=== PATIENT | female | born 1940 | race Caucasian/White ===

== ENCOUNTER 2016-10-15 06:56 | Day surgery (SDC) | payer MEDICARE, OTHER ==
[2016-10-10 15:30] LABS: BASOPHILS 0.2 %; BASOPHILS ABSOLUTE 0.01 10/3/uL (0.0-0.16); EOSINOPHILS 1.1 %; EOSINOPHILS ABSOLUTE 0.06 10/3/uL (0.0-0.53); HEMATOCRIT 37.6 % (36.0-48.0); HEMOGLOBIN 12.8 g/dL (12.0-16.0); LYMPHOCYTES 32.5 %; LYMPHOCYTES ABSOLUTE 1.74 10/3/uL (0.67-4.30); MEAN CORPUSCULAR HEMOGLOB 32.1 pg (26.0-34.0); MEAN CORPUSCULAR VOLUME 94.2 fL (80-100); MEAN PLATELET VOLUME 9.8 fL (9.2-13.0); MONOCYTES 6.4 %; MONOCYTES ABSOLUTE 0.34 10/3/uL (0.21-1.20); NEUTROPHILS 59.8 %; PLATELET COUNT 214 10/3/uL (150-400); RED CELL COUNT 3.99 10/6/uL (4.0-5.6); WHITE BLOOD CELLS 5.4 10/3/uL (4.5-10.5)
[2016-10-10 15:31] LABS: MANUAL DIFF NO %
[2016-10-10 15:32] LABS: ASCORBIC ACID (UR NOT ORDER) 40 (NEG); BILIRUBIN, URINE NEGATIVE (NEG); KETONE, URINE NEGATIVE (NEG); LEUKOCYTE ESTERASE(NOT OR LARGE (NEG); WBC (NOT ORDERED) (RFLEX) 66 (0-5)
[2016-10-10 15:56] LABS: BUN (BLOOD UREA NITROGEN) 17 MG/DL (6-23); CALCIUM, SERUM 9.3 MG/DL (8.5-10.4); CHLORIDE, SERUM 104 MMOL/L (96-112); CO2 (CARBON DIOXIDE) 30 MMOL/L (24-34); GFR AFRICAN AMERICAN 97 ML/MIN (>=60); GFR NON AFRICAN AMERICAN 84 ML/MIN (>=60); GLUCOSE, SERUM 81 MG/DL (60-99); POTASSIUM, SERUM 4.1 MMOL/L (3.5-5.3); SODIUM, SERUM 141 MMOL/L (135-148)
--- NOTE | ~2016-10-15 | OP ---
Record Of Operation [facility] [address] [place]. [address] NAME: TYRONE RO : 38 STATUS : [facility]#: [id number] AGE: 76 ADM/REG DATE : 10/15/16 MR#: [id number] REPORT SERV DATE: 10/15/16 DICTATED BY: CARLITO WYNNE DATE: 10/15/16 REPORT STATUS : Draft TRANSCRIBED BY: SUKHI DATE: 10/15/16 DATE OF PROCEDURE: 10/15/2016 PREOPERATIVE DIAGNOSIS: Renal calculi, left. POSTOPERATIVE DIAGNOSIS: Renal calculi, left. PROCEDURE: Left extracorporeal shock wave lithotripsy. ANESTHESIA: Monitored anesthesia care (MAC). ESTIMATED BLOOD LOSS: None. COMPLICATIONS: None. IMMEDIATE POSTOP: Satisfactory. DESCRIPTION OF PROCEDURE: The patient was brought into the lithotripsy suite, placed on table of the [employer] lithotripter. Residual fragments from prior lithotripsy treatment noted in two separate clusters in the left kidney were identified. The lower most of these which appeared to be in the lower pole was aligned on mobile C-arm fluoroscopy. The patient was then coupled to the machine, given intravenous sedation by the Anesthesia Department. This group of stone was treated with 1500 shocks at 3000 power level max. The patient was then shifted to treat the more cephalad cluster which was likewise treated with 1500 shocks at 7.0 power level max. The patient tolerated the procedure well, and at the close of the procedure was awakened and sent to phase 2 recovery for post lithotripsy care. There were no complications. /SUKHI Carlito Wynne M.D. / [id number] CC: Ericka Holman MD
[~2016-10-15 06:56] MED LIST: ALEVE220 MG PO; AMIT10 PO; ASAB PO; ATIVAN2 MG PO; CALGLUCTAB PO; CRESTOR20 MG PO; DIAM250B PO; DRAMAMINE25 MG PO; FIORINALC PO; HYDROCHLOROT25 MG PO; KLOR-CON 1010 MEQ PO; MULTIPLE VIT PO; NITROQUICK0.4 MG SL; NORV5 PO; PAPAYA ENZYM OR; PCET PO; PRIM50B PO; PROBIOTIC; PROZAC40 MG PO; SARAFEM20 M1 PO; STOOL SOFTEN240 MG PO; SYN.025B PO; SYN.05 PO; TOPXL50 PO; ULTRAM50 PO; VANC125UDL PO; VITAMIN B-121000 MC1 SL; VITAMIN D1000 UNI1 PO; VITAMIN D31000 UNIT PO; [UNRECOGNIZED DRUG - REMARK]
== END 2016-10-15 11:55 | disposition home or self-care (01) ==
LOC: SDC 06:56
PROVIDERS: Urology
PROC: 0TF4XZZ Fragmentation in Left Kidney Pelvis, External Approach (ICD-10-PCS; principal; 2016-10-15 09:00)
DX: N20.0 Calculus of kidney (principal); I10 Essential (primary) hypertension; M19.90 Unspecified osteoarthritis, unspecified site; G47.33 Obstructive sleep apnea (adult) (pediatric); F41.9 Anxiety disorder, unspecified; F32.9 Major depressive disorder, single episode, unspecified; I20.9 Angina pectoris, unspecified; D64.9 Anemia, unspecified; E03.9 Hypothyroidism, unspecified; Z87.442 Personal history of urinary calculi; Z88.5 Allergy status to narcotic agent; Z88.8 Allergy status to other drugs, medicaments and biological substances; Z90.49 Acquired absence of other specified parts of digestive tract; Z90.710 Acquired absence of both cervix and uterus
CPT/HCPCS: 50590; 74000; 80048; 81001; 85025; 87086

== ENCOUNTER 2016-12-26 18:11 | Emergency (ER) | payer MEDICARE, OTHER ==
[2016-12-26 15:58] LABS: BASOPHILS 0.2 %; BASOPHILS ABSOLUTE 0.01 10/3/uL (0.0-0.16); EOSINOPHILS 0.2 %; EOSINOPHILS ABSOLUTE 0.01 10/3/uL (0.0-0.53); HEMATOCRIT 37.8 % (36.0-48.0); HEMOGLOBIN 13.2 g/dL (12.0-16.0); LYMPHOCYTES 20.2 %; LYMPHOCYTES ABSOLUTE 1.06 10/3/uL (0.67-4.30); MANUAL DIFF NO %; MEAN CORPUS HGB CONC 34.9 g/dL (32.0-36.0); MEAN CORPUSCULAR VOLUME 91.7 fL (80-100); MEAN PLATELET VOLUME 9.8 fL (9.2-13.0); MONOCYTES 6.1 %; MONOCYTES ABSOLUTE 0.32 10/3/uL (0.21-1.20); NEUTROPHILS 73.3 %; NEUTROPHILS ABSOLUTE 3.84 10/3/uL (2.02-8.40); PLATELET COUNT 175 10/3/uL (150-400); RBC DISTRIBUTION WIDTH 12.6 % (12.0-16.0); RED CELL COUNT 4.12 10/6/uL (4.0-5.6); WHITE BLOOD CELLS 5.2 10/3/uL (4.5-10.5)
[2016-12-26 16:04] LABS: INTERNATIONAL NORMAL RATI 1.1 UNITS (-)
[2016-12-26 16:05] LABS: PARTIAL THROMBO TIME 30.2 SEC (22.5-37.2)
[2016-12-26 16:13] LABS: CALCIUM, SERUM 9.4 MG/DL (8.5-10.4); CHEST PAIN PROFILE TAT 0 Hrs 21 Mins; CHLORIDE, SERUM 107 MMOL/L (96-112); CO2 (CARBON DIOXIDE) 32 MMOL/L (24-34); CREATININE 0.81 MG/DL (0.55-1.02); GFR AFRICAN AMERICAN 81 ML/MIN (>=60); GFR NON AFRICAN AMERICAN 70 ML/MIN (>=60); SODIUM, SERUM 144 MMOL/L (135-148); TROPONIN I <0.02 NG/ML (<0.05)
[2016-12-26 16:14] LABS: BUN (BLOOD UREA NITROGEN) 12 MG/DL (6-23); GLUCOSE, SERUM 104 MG/DL (60-99)
== END 2016-12-26 18:19 | disposition home or self-care (01) ==
LOC: ER 18:11
PROVIDERS: Emergency Medicine
DX: R07.9 Chest pain, unspecified (principal); I10 Essential (primary) hypertension; Z95.5 Presence of coronary angioplasty implant and graft; Z88.8 Allergy status to other drugs, medicaments and biological substances; Z88.5 Allergy status to narcotic agent; Z88.2 Allergy status to sulfonamides; Z79.899 Other long term (current) drug therapy; Z88.1 Allergy status to other antibiotic agents; Z79.82 Long term (current) use of aspirin; Z91.041 Radiographic dye allergy status
CPT/HCPCS: 71020; 80048; 83735; 84484; 85025; 85610; 85730; 93005; 99285; A9270-GY